=== PATIENT | male | born 1935 | race Caucasian/White ===

== ENCOUNTER → 2017-09-24 17:09 | Outpatient (CLI) | payer MEDICARE, SELFPAY | PROVIDERS: Visit Provider Urology | DX: R31.9 Hematuria, unspecified (principal) | CPT/HCPCS: 87077; 87086; 87088; 87186 ==

== ENCOUNTER → 2017-09-28 13:27 | Outpatient (CLI) | payer MEDICARE, SELFPAY ==
[2017-09-28 13:46] VITALS: BP 158/77; PULSE 63; RESP 18; TEMP 36.4; O2SAT 95; BMI 33.4
[2017-09-28 14:09] LABS: Anion Gap 9 (5-15); BUN 23 mg/dL (7-18); BUN/Creat Ratio 21.5 RATIO (10-20); Calcium,Total 8.9 mg/dL (8.5-10.1); Chloride 102 mmol/L (98-107); Creatinine, Serum 1.07 mg/dL (0.70-1.30); EST Glomerular Filtration Rate 71 mL/min (>60); Est Glom Filt Rate - Afr Amer 85 mL/min (>60); Estimated Creatinine Clearance 53.27 ml/min; Glucose 181 mg/dL (70-110); Potassium 3.4 mmol/L (3.5-5.1); Sodium Level 138 mmol/L (136-145)
== END ==
PROVIDERS: Family Provider Family Medicine; PCP Family Medicine; Visit Provider Urology
DX: N39.0 Urinary tract infection, site not specified (principal)
CPT/HCPCS: 96365; 80048; J7050; A4216

== ENCOUNTER → 2017-09-29 13:37 | Outpatient (CLI) | payer MEDICARE, SELFPAY ==
[2017-09-29 13:40] VITALS: BP 177/86; PULSE 89; RESP 16; TEMP 36.4; O2SAT 95; BMI 33.0
[2017-09-29 15:09] LABS: Hematocrit 40.1 % (40-54); Hemoglobin 13.7 g/dl (13.0-16.5); Mean Corp Hgb Conc 34.2 g/gl (32-36); Mean Corpuscular Hgb 30.7 pg (27.0-32.0); Mean Corpuscular Volume 89.9 fL (80-94); Mean Platelet Vol. 10.4 fl (6.2-12.0); Platelet Count 169 K/mm3 (150-450); RBC Distribution Width CV 13.5 % (11.6-14.6); RBC Distribution Width SD 44.4 fl (35.1-43.9); Red Blood Count 4.46 M/mm3 (4.6-6.2); White Blood Count 9.2 K/mm3 (4.4-11.0)
[2017-09-29 15:21] LABS: Scan Indicated on CBC? Y/N NO
== END ==
PROVIDERS: Family Provider Family Medicine; PCP Family Medicine; Visit Provider Urology
DX: I10 Essential (primary) hypertension (principal); E11.9 Type 2 diabetes mellitus without complications
CPT/HCPCS: 85027; J7050; A4216

== ENCOUNTER → 2017-10-01 14:11 | Outpatient (CLI) | payer MEDICARE, SELFPAY ==
[2017-10-01 14:37] VITALS: BP 167/79; PULSE 80; RESP 18; TEMP 36.5; O2SAT 96; BMI 33.0
[2017-10-01 16:01] LABS: Tobramycin Conventional Trough < 0.3 ug/mL (<2.00)
== END ==
PROVIDERS: Family Provider Family Medicine; PCP Family Medicine; Visit Provider Urology
DX: N39.0 Urinary tract infection, site not specified (principal)
CPT/HCPCS: 96365; 80200; J7050; A4216

== ENCOUNTER 2017-10-03 13:48 | Outpatient (CLI) | payer MEDICARE, SELFPAY ==
[2017-10-01 14:37] VITALS: BP 167/79; BMI 33.0
[2017-10-03] MEDS: 0.9% NaCl Peripheral Flush Adult/Peds IV (14:00)
[2017-10-03 14:20] VITALS: BP 167/84; PULSE 72; RESP 18; TEMP 36.6; O2SAT 98; BMI 33.1
== END 2017-10-03 15:08 | disposition home or self-care (01) ==
LOC: MEDOUTP 13:49 → MS3 13:50
PROVIDERS: Family Provider Family Medicine; PCP Family Medicine; Visit Provider Urology
DX: N39.0 Urinary tract infection, site not specified (principal)
CPT/HCPCS: 96365; A4216

== ENCOUNTER → 2017-10-05 14:07 | Outpatient (CLI) | payer MEDICARE, SELFPAY ==
[2017-10-01 14:37] VITALS: BP 167/79; BMI 33.0
[2017-10-03 14:20] VITALS: BP 167/84; BMI 33.1
[2017-10-05 14:29] VITALS: BP 155/90; PULSE 74; RESP 16; TEMP 36.8; BMI 33.1
== END ==
PROVIDERS: Family Provider Family Medicine; PCP Family Medicine; Visit Provider Urology
DX: N39.0 Urinary tract infection, site not specified (principal)
CPT/HCPCS: 96365; J7050; A4216

== ENCOUNTER → 2019-06-08 06:08 | Outpatient (CLI) | payer MEDICARE, SELFPAY ==
[2017-10-05 14:29] VITALS: BMI 33.1
--- NOTE | 2019-06-08 09:49 | NEURO ---
NCS and/or EMG Patient Report Ordering Doctor: Winston Christy DATE OF SERVICE: 06/08/19 Nikita Avalos is an 84-year-old male presents for electrodiagnostic testing of the right upper limb. He has numbness and tingling in the right hand, primarily in the first 3 digits. He does report a history of carpal tunnel release approximately 30 years ago. Electrodiagnostic findings: The right median motor nerve demonstrates prolonged distal latency with normal amplitude and reduced conduction velocity. Right ulnar motor response demonstrates normal distal latency and amplitude with reduced conduction velocity. Prolonged right median F wave is noted. Prolonged right median sensory latency at the wrist. On needle EMG, all muscles tested in the right upper limb showed no evidence of denervation with normal motor unit action potentials Electrodiagnostic impression: This is an abnormal study in the right upper limb 1. Electrodiagnostic findings demonstrate right-sided median mononeuropathy. This is consistent with a moderate right carpal tunnel syndrome. If there are any further questions, please do not hesitate to contact me.
== END ==
PROVIDERS: Family Provider Family Medicine; PCP Family Medicine; Referring Provider Family Medicine; Visit Provider Family Medicine
DX: G56.01 Carpal tunnel syndrome, right upper limb (principal)
CPT/HCPCS: 95886; 95910